=== PATIENT | female | born 1965 | race Caucasian/White ===

== ENCOUNTER 2019-12-02 05:25 | Emergency (ER) | payer OTHER ==
[~2019-12-02] VITALS: Ht 165.1 cm; Wt 86.2 kg
[2019-12-02 05:31] VITALS: BP 104/65
--- NOTE | 2019-12-02 05:42 | NUR ---
PT TAKEN TO BED 3
--- NOTE | 2019-12-02 05:45 | NUR ---
Dr. Rogers examining patient.
[2019-12-02] MEDS ORDERED: NACL 0.9% 500 ML IV ONE (05:50)
[2019-12-02] MEDS ORDERED: ASPIRIN 81 MG TAB.CHEW PO ONE (05:50)
[2019-12-02] MEDS ORDERED: KETOROLAC 30 MG/ML VIAL IVP ONE (05:55)
--- NOTE | 2019-12-02 06:02 | NUR ---
X-Ray at bedside.
--- NOTE | 2019-12-02 06:08 | NUR ---
NS500 ML@100 ML/HR
--- NOTE | 2019-12-02 06:09 | NUR ---
53 Y/O F PRESENTS TO ED C/O INTERMITTENT CHEST PAIN RADIATING TO LEFT ARM X 1 MONTH. PT STATES PAIN IS 7/10. RR EVEN AND UNLABORED, AIRWAY INTACT. NO EDEMA PRESENT. RADIAL PULSES PRESENT BILAT. BED LOCKED AND IN LOWEST POSITION, SIDE RAIL UPX1. WILL CONTINUE TO MONITOR. MHX: DENIES NKA
--- NOTE | 2019-12-02 06:10 | NUR ---
LAB AT BEDSIDE.
[2019-12-02 06:28] LABS: HEMATOCRIT 39.6 % (36-48); HEMOGLOBIN 13.2 g/dL (12.0-16.0); MEAN CORPUSCULAR HEMOGLOBIN 28 pg (27-31); MEAN CORPUSCULAR VOLUME 83.6 fL (80-94); RED BLOOD CELL COUNT(AUTO) 4.74 MIL/uL (4.20-5.40); WHITE BLOOD COUNT (AUTO) 4.9 K/uL (4.8-10.8)
[2019-12-02 06:29] LABS: LYMPHOCYTES % (AUTO) 55.1 % (20.5-51.1); MEAN CORPUSCULAR HGB CONC 33 g/dL (33-37); MONOCYTES % (AUTO) 6.6 % (1.7-9.3); NEUTROPHILS % (AUTO) 34.6 % (42.2-75.2); PLATELET COUNT (AUTO) 243 K/uL (140-450); RED CELL DISTRIBUTION WIDTH 14.5 % (11.6-13.7)
[2019-12-02 06:30] LABS: BASOPHILS % (AUTO) 0.7 % (0.0-2.0); EOSINOPHILS # (AUTO) 0.1 K/uL (0-0.4); LYMPHOCYTES # (AUTO) 2.7 K/uL (2.5-16.5); MONOCYTES # (AUTO) 0.3 K/uL (0.8-1.0); NEUTROPHILS # (AUTO) 1.7 K/uL (1.8-7.7)
[2019-12-02 06:38] LABS: ALBUMIN 3.4 g/dL (3.4-5.0); CARBON DIOXIDE 27.7 mmol/L (21-32); CREATININE 1.2 mg/dL (0.6-1.3); POTASSIUM 3.7 mmol/L (3.5-5.1); TOTAL BILIRUBIN 0.3 mg/dL (0.0-1.0)
[2019-12-02] MEDS ORDERED: DOL10 PO (06:49)
--- NOTE | 2019-12-02 07:06 | NUR ---
GAVE REPORT TO SAHIL FATIMA FOR CONTINUITY OF CARE.
--- NOTE | 2019-12-02 07:14 | NUR ---
RECEIVED REPORT FROM SAHIL TRACY AND [facility]
[2019-12-02] MEDS ORDERED: MORPHINE SULFATE 4 MG/ML SYR IVP ONE (07:35)
[2019-12-02 09:12] VITALS: BP 104/65
--- NOTE | 2019-12-02 09:12 | NUR ---
Patient discharged with v/s stable. Written and verbal after care instructions given and explained. Patient alert, oriented and verbalized understanding of instructions. Ambulatory with steady gait. All questions addressed prior to discharge. ID band removed. Patient advised to follow up with PMD. Rx of VALIUM AND NAPROSYN given. Patient educated on indication of medication including possible reaction and side effects. Opportunity to ask questions provided and answered.
== END 2019-12-02 09:12 | disposition home or self-care (01) ==
LOC: MED 05:25
DX: R07.89 Other chest pain (principal); M54.9 Dorsalgia, unspecified; R06.02 Shortness of breath; R61 Generalized hyperhidrosis
CPT/HCPCS: 36415; 71045; 80053; 84484; 85025; 93005; 96374; 96375; 99285; J1885; J2270; Q0092; J7030

== ENCOUNTER 2021-02-11 08:57 | Emergency (ER) | payer OTHER ==
[~2021-02-11] VITALS: Ht 165.1 cm; Wt 77.1 kg
[~2021-02-11 08:57] MED LIST: METH-1550 PO
[2021-02-11 09:00] VITALS: BP 108/75
--- NOTE | 2021-02-11 09:33 | NUR ---
PT C/O SUBSTERNAL CHEST PRESSURE NON RADIATING SINCE THIS AM. PLACED ON BEDSIDE MONITOR. NSR ON MONITOR. NAD. SAFETY MAINTAINED
[2021-02-11 11:06] LABS: ALBUMIN 3.3 g/dL (3.4-5.0); ANION GAP 13.4 (8-16); CREATININE 1.1 mg/dL (0.6-1.3); POTASSIUM 4.4 mmol/L (3.5-5.1); TOTAL BILIRUBIN 0.2 mg/dL (0.0-1.0)
[2021-02-11 11:30] LABS: BASOPHILS # (AUTO) 0.1 K/uL (0.00-0.22); EOSINOPHILS # (AUTO) 0.2 K/uL (0-0.4); LYMPHOCYTES # (AUTO) 4.1 K/uL (2.5-16.5); WHITE BLOOD COUNT (AUTO) 9.4 K/uL (4.8-10.8)
[2021-02-11 11:32] LABS: BASOPHILS % (AUTO) 1.5 % (0.0-2.0); EOSINOPHILS % (AUTO) 2.6 % (0.0-4.0); HEMATOCRIT 36.8 % (36-48); HEMOGLOBIN 12.5 g/dL (12.0-16.0); LYMPHOCYTES % (AUTO) 43.8 % (20.5-51.1); MEAN CORPUSCULAR HEMOGLOBIN 30 pg (27-31); MEAN CORPUSCULAR HGB CONC 34 g/dL (33-37); MEAN CORPUSCULAR VOLUME 88.6 fL (80-94); MONOCYTES # (AUTO) 0.5 K/uL (0.8-1.0); MONOCYTES % (AUTO) 5.8 % (1.7-9.3); NEUTROPHILS # (AUTO) 4.3 K/uL (1.8-7.7); NEUTROPHILS % (AUTO) 46.3 % (42.2-75.2); PLATELET COUNT (AUTO) 210 K/uL (140-450); RED BLOOD CELL COUNT(AUTO) 4.15 MIL/uL (4.20-5.40); RED CELL DISTRIBUTION WIDTH 13.3 % (11.6-13.7)
--- NOTE | 2021-02-11 12:26 | NUR ---
pt verbalizes dc instructions. no acute distress noted. stable on dc.
[2021-02-11 12:27] VITALS: BP 104/70
== END 2021-02-11 12:27 | disposition home or self-care (01) ==
LOC: MED 08:57
DX: R07.89 Other chest pain (principal); R42 Dizziness and giddiness; R06.02 Shortness of breath; J45.909 Unspecified asthma, uncomplicated; Z79.899 Other long term (current) drug therapy
CPT/HCPCS: 36415; 71045; 80053; 83690; 83880; 84484; 85025; 93005; 99285